=== PATIENT | male | born 1985 | race Caucasian/White ===

== ENCOUNTER 2019-08-10 20:41 | Emergency (ER) | payer OTHER, SELFPAY ==
[2019-08-10 20:46] VITALS: BP 161/80; PULSE 117; RESP 20; TEMP 38.8; O2SAT 98
--- NOTE | 2019-08-10 20:52 | ED.FEVER ---
HPI - Fever General Chief Complaint: Upper Respiratory Infection Stated Complaint: fever, muscle aches, chills Time Seen by Provider: 08/10/19 20:52 Source: patient and RN notes reviewed Mode of arrival: ambulatory Limitations: no limitations History of Present Illness MD elicited complaint: fever and malaise Onset (ago): hour(s) (3.5) Measured temperature: 101.0 C Relieving factors: nothing Associated symptoms: chills, myalgias and nausea Treatments prior to arrival fever: none Related Data Home Medications Medication Instructions Recorded Confirmed No Home Medications 08/10/19 08/10/19 Allergies Allergy/AdvReac Type Severity Reaction Status Date / Time No Known Allergies Allergy Unverified 10/10/18 12:58 Review of Systems Review of Systems: All systems reviewed & are unremarkable except as noted in HPI and below PMFSH Past Medical History Medical History (Updated 08/10/19 @ 21:37 by Fede Aburto MD) No active medical problems Social History Social History (Updated 08/10/19 @ 21:03 by Fede Aburto MD) Smoking status: Current every day smoker Tobacco type: e-cigarettes Alcohol intake: current Alcohol use details: occasional Substance use: never Gender identity (if verbalized by the patient): Male Exam Const: General: healthy appearing, no acute distress and alert Nutritional Appearance: well nourished Orientation/consciousness: patient oriented x3 HENMT: Head: normal to inspection Ears: external ears normal and TM's normal bilaterally General nose exam: Normal external nose present and Normal nares present Face and sinus: normal facial exam Mouth: Yes Normal oral and palatal mucosa present, Yes lip normal and Yes moist mucous membranes Throat: posterior oropharynx normal and uvula midline Eyes: Conjunctivae: conjunctivae normal Pupils: Equal, round and reactive pupils present EOM: EOMs intact bilaterally Neck: Neck: normal visual inspection and no lymphadenopathy Resp: Effort & Inspection: normal respiratory effort Auscultation: clear to auscultation bilaterally Cardio: Rate: regular rate Rhythm: regular rhythm Heart sounds: no murmurs GI: Auscultation: normal bowel sounds Back/Spine/Pelvis: Cervical Spine: cervical ROM normal Thoracic/Lumbar Spine: thoraco-lumbar ROM normal Skin: General skin exam: normal color Rashes: no rashes Neuro: General: patient oriented x3, moves all extremities and no focal motor deficits Speech: normal speech Gait exam (Neuro): Normal gait present Extrem: General: normal to inspection and no clubbing, cyanosis or edema Psych: Appearance: well kempt Mental Status: mental status grossly normal Affect: normal affect Attitude: cooperative Thought content: Yes Normal thought content present Course Vital Signs Vital signs: Vital Signs Temperature 38.8 C H 08/10/19 20:46 Pulse Rate 117 H 08/10/19 20:46 Respiratory Rate 20 08/10/19 20:46 Blood Pressure 161/80 H 08/10/19 20:46 Pulse Oximetry 98 08/10/19 20:46 Temperature 38.8 C H 08/10/19 20:46 Pulse Rate 117 H 08/10/19 20:46 Respiratory Rate 20 08/10/19 20:46 Blood Pressure 161/80 H 08/10/19 20:46 Pulse Oximetry 98 08/10/19 20:46 MDM - Fever MDM Narrative Medical decision making narrative: patient has fever of abrupt onset with myalgias mild nausea and chills. He tested negative for influenza I am going to test him for COVID-19. Patient is currently stable with good oxygen saturation and no dyspnea or severe cough. He is stable to be at home until he receives results. Differential Diagnosis Differential diagnosis: Likely fever of unknown origin, viral infection and influenza Lab Data Labs: Lab Results 08/10/19 08/10/19 Range/Units 21:04 21:43 Influenza Type A Ag Negative (Negative) Influenza Type B Ag Negative (Negative) SARS-CoV-2 RNA (RT-PCR) Pending Discharge Plan Discharge Clinical Impression: Viral
[2019-08-10] MEDS: ACETAMINOPHEN 325 MG TABLET 650 MG PO (21:08)
[2019-08-10 21:27] LABS: Influenza Control Valid (Valid)
--- NOTE | 2019-08-10 21:35 | PC.NURSE ---
Self quarantine instructions provided to pt. Instructed that people in his household must also self quarantine until results of Covid swab are obtained. Pt verbalizes understanding.
[2019-08-10 21:38] VITALS: RESP 20
[2019-08-13 14:01] LABS: SARS-CoV-2 RNA PCR Negative
== END 2019-08-10 21:38 | disposition home or self-care (01) ==
PROVIDERS: Emergency Provider Emergency Medicine; PCP Internal Medicine
DX: B34.9 Viral infection, unspecified (principal); Z20.828 Contact with and (suspected) exposure to other viral communicable diseases
CPT/HCPCS: 87635; 87804; 99283; A9270; C9803; U0003

== ENCOUNTER 2019-08-25 20:24 | Emergency (ER) | payer OTHER, SELFPAY ==
--- NOTE | ~2019-08-25 | XR_ITS ---
EXAMINATION: XR chest ET placement EXAM DATE: 08/25/2019 21:12 INDICATION: Intubated. TECHNIQUE: Portable AP frontal chest x-ray was obtained. There is no prior study for comparison. FINDINGS: Endotracheal tube tip is 2 centimeters above the corbin (ideal range is between 2 to 5 cm). There is no focal acute air space disease. There are no sizable pleural effusions. There is no p neumothorax suspected. Cardiomediastinal silhouette is normal. The bones and soft tissues are unre markable. There is no significant interval change compared to prior exam. IMPRESSION: 1. ET tube in position. 2. No acute cardiopulmonary findings. Reviewed, dictated and finalized at location G.
[2019-08-25 20:24] VITALS: BP 154/126; PULSE 132; RESP 20; TEMP 36.5; O2SAT 97
[2019-08-25 20:25] VITALS: PULSE 132
[2019-08-25 20:30] VITALS: O2SAT 100
--- NOTE | 2019-08-25 20:30 | PC.NURSE ---
2 liters of normal saline administered. 1 liter in left forearm and liter 2 in right forearm.
--- NOTE | 2019-08-25 20:30 | PC.NURSE ---
normal saline 1 liter started throught right forearm wide open.
--- NOTE | 2019-08-25 20:40 | PC.NURSE ---
Arch at bedside. Arch using RSI medications of their own to intubation pt. 2044 50mcg fentanyl 2047 30 mg etomidate 2048 200mg succinocholine 2049 Pt intubated size 8 tube, 26 @ the lips via arch staff. 2054 50mcg fentanyl 8 1mg Ativan 2102 1mg Ativan 2102 chest xray done for tube placement 2106 50mcg Fentanyl 2114 50mcg fentanyl
--- NOTE | 2019-08-25 20:40 | PC.NURSE ---
blood sugar 145
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
[2019-08-25 20:48] VITALS: BP 139/98; PULSE 104; RESP 14; O2SAT 100
--- NOTE | 2019-08-25 21:04 | PC.NURSE ---
Addendum entered by Shari Perry RN 08/25/19 22:14: normal saline 1 liter infused. Original Note: normal saline 2 liters infused.
[2019-08-25 21:06] VITALS: BP 140/88; PULSE 118; O2SAT 96
--- NOTE | 2019-08-25 21:17 | PC.NURSE ---
TANESHA BARNETT, [place] at [facility] updated on pts status and departure via arch.
[2019-08-25 21:20] VITALS: BP 162/47; PULSE 117; O2SAT 100
[2019-08-26 00:40] LABS: Glucose Point of Care 145 (65-105)
== END 2019-08-25 21:20 | disposition short-term general hospital (02) ==
PROVIDERS: Emergency Provider Family Medicine; PCP Internal Medicine
DX: S09.90XA Unspecified injury of head, initial encounter (principal); S41.012A Laceration without foreign body of left shoulder, initial encounter; S70.211A Abrasion, right hip, initial encounter; J93.9 Pneumothorax, unspecified; V29.9XXA Motorcycle rider (driver) (passenger) injured in unspecified traffic accident, initial encounter; F17.200 Nicotine dependence, unspecified, uncomplicated
CPT/HCPCS: 31500; 96361; 96374; 96375; 96376; 99285; 99291; J7030

== ENCOUNTER 2019-10-17 14:00 | Outpatient (RCR) | payer OTHER, SELFPAY ==
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
--- NOTE | 2019-11-06 16:04 | PCPTNOTE ---
11/06/19-pt cancelled today's appointment. -.
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
== END 2019-12-07 14:40 | disposition home or self-care (01) ==
LOC: CHSST 14:00
PROVIDERS: PCP Internal Medicine; Visit Provider Internal Medicine
DX: S09.90XA Unspecified injury of head, initial encounter (principal); R48.0 Dyslexia and alexia; R27.8 Other lack of coordination; M75.01 Adhesive capsulitis of right shoulder
CPT/HCPCS: 92507; 96125; 97014; 97110; 97112; 97129; 97130; 97140; 97161; 97166; 97530; G0283

== ENCOUNTER 2019-11-03 09:50 | Outpatient (CLI) | payer OTHER, SELFPAY ==
--- NOTE | ~2019-11-03 | MR_ITS ---
EXAMINATION: MR shoulder RT wo con DATE: 11/03/2019 11:08 INDICATION: Right shoulder pain. TECHNIQUE: Magnetic resonance imaging (MRI) of the right shoulder was performed without intravenous c ontrast. Sequences included axial PD-weighted FS FSE, coronal oblique PD-weighted FS FSE and T2-weigh sukhi FS FSE, and sagittal oblique T2-weighted FS FSE and T1-weighted FSE. COMPARISON: None. FINDINGS: Coracoacromial arch: The acromion undersurface is curved in morphology (type II). The acromioclavicular joint is normal. T here is mild subacromial/subdeltoid bursitis. Rotator cuff: There is mild supraspinatus tendinopathy. Infraspinatus tendon and teres minor tendon are normal. The re is moderate subscapularis tendinopathy. No tear. There is no asymmetric fatty atrophy of the rotat or cuff muscle bellies. Biceps tendon and glenoid labrum: Biceps tendon is in bicipital groove. Intra-articular biceps tendon is normal. The glenoid labrum is normal. Fluid: There is no glenohumeral joint effusion. Bones/cartilage: There is cartilage surface irregularity of glenoid and humeral head. IMPRESSION: 1. Moderate rotator cuff tendinopathy. No tear. 2. Mild glenohumeral joint chondrosis. 3. Mild subacromial/subdeltoid bursitis. Reviewed, dictated and finalized at location A.
== END 2019-11-03 09:51 | disposition home or self-care (01) ==
PROVIDERS: PCP Internal Medicine; Visit Provider Internal Medicine
DX: M25.511 Pain in right shoulder (principal)
CPT/HCPCS: 73221

== ENCOUNTER 2020-03-11 23:51 | Emergency (ER) | payer SELFPAY ==
--- NOTE | ~2020-03-11 | XR_ITS ---
EXAMINATION: XR chest 1V portable 03/12/2020 01:19 INDICATION: Pain. Positive Covid tests. PROCEDURE: AP portable chest COMPARISON: 08/25/2019 FINDINGS: The lungs are clear. The cardiomediastinal silhouette is within normal limits. There are no pleural effusions. There is no pneumothorax suspected. IMPRESSION: 1: NO ACUTE CARDIOPULMONARY DISEASE. Reviewed, dictated and finalized at location A. T SPECIALIST
[2020-03-12 00:10] VITALS: BP 132/86; PULSE 79; RESP 20; TEMP 36.4; O2SAT 100
--- NOTE | 2020-03-12 00:20 | ECG_ITS ---
Measurements Intervals [place] Rate: 70 P: 77 CA: 140 QRS: 79 QRSD: 88 T: 37 QT: 356 QTc: 386 Interpretive Statements SINUS RHYTHM WITH SINUS ARRHYTHMIA BASELINE WANDER- AVF, V2-V6 NORMAL ECG Electronically Signed On 03-12-2020 7:28:39 [employer] SAL[employer]AGER by Cristino Barbosa D.O.
[2020-03-12 00:39] LABS: Basophils Absolute Auto 0.02 K/mm3 (0.00-0.10); Basophils Percent Auto 0.5 % (0.0-1.0); Eosinophils Absolute Auto 0.12 K/mm3 (0.02-0.50); Eosinophils Percent Auto 2.8 % (1.0-6.0); Hematocrit 44.2 % (40.0-54.0); Hemoglobin 14.6 g/dL (14.0-18.0); Immature Granulocyte Absolute 0.02 K/mm3 (0.00-0.00); Immature Granulocyte Percent A 0.5 % (0.0-0.0); Lymphocytes Absolute Auto 1.65 K/mm3 (1.10-4.50); Mean Corpuscular Hemoglobin 29.5 pg (27.0-31.0); Mean Corpuscular Volume 89.3 fL (78.0-102.0); Mean Platelet Volume 11.4 fl (8.7-11.0); Monocytes Absolute Auto 0.43 K/mm3 (0.10-0.90); Monocytes Percent Auto 9.9 % (2.0-11.0); Neutrophils Absolute Auto 2.1 K/mm3 (1.7-7.2); Neutrophils Percent Auto 48.3 % (50.0-70.0); Platelet Count Result 189 K/mm3 (150-420); Red Blood Count 4.95 M/mm3 (4.70-6.10); Red Cell Distribution Width 13.1 % (11.6-14.4); White Blood Count 4.3 K/mm3 (4.8-10.8)
[2020-03-12] MEDS: KETOROLAC (*BKC) 60 MG/2 ML VIAL IM (00:39)
[2020-03-12 00:55] LABS: D Dimer 0.46 mg/L (0.19-0.50)
[2020-03-12 01:00] LABS: SARS-CoV-2 Ag Positive (Negative)
[2020-03-12 01:08] LABS: Alanine Aminotransferase 17 U/L (16-63); Alkaline Phosphatase 46 U/L (46-116); Anion Gap 7 mmol/L (8-16); Aspartate Amino Transferase 12 U/L (15-37); Bilirubin,Total 0.3 mg/dL (0.00-1.00); Blood Urea Nitrogen 16 mg/dL (7-18); Calcium 9.1 mg/dL (8.5-10.1); Carbon Dioxide 30 mmol/L (21-32); Chloride 104 mmol/L (98-108); Estimated Glomerular Filt Rate > 60; Glucose 99 mg/dL (70-99); Osmolality Calculated 293 mOsm/kg (285-295); Potassium 4.1 mmol/L (3.5-5.1); Sodium 141 mmol/L (136-145); Total Protein 7.3 g/dL (6.4-8.2)
[2020-03-12 01:11] LABS: Troponin I < 0.02 ng/mL (0.00-0.056)
--- NOTE | 2020-03-12 01:46 | ED.GENADULT ---
HPI - General Adult General Chief complaint: Abdominal Pain Stated complaint: SIDE PAIN Time Seen by Provider: 03/12/20 00:25 Source: patient Mode of arrival: ambulatory Limitations: no limitations History of Present Illness HPI narrative: Patient comes in with pain in the right lateral chest pain. This has gone on for the past couple of days. Pain has been moderately severe and ongoing. Nothing at home has helped this to get better Quality: stabbing Pain Consistency: intermittent Exacerbating factors: none Related Data Allergies Allergy/AdvReac Type Severity Reaction Status Date / Time No Known Allergies Allergy Unverified 10/10/18 12:58 Review of Systems Constitutional: Constitutional: Reports no additional constitutional complaints Eyes: Eyes: Reports no additional eye complaints ENT: Reports system reviewed and no additional complaints, except as documented Cardiovascular: Cardiovascular: Reports no additional cardiovascular complaints Respiratory: Respiratory: Reports no additional respiratory complaints Gastrointestinal: Gastrointestinal: Reports no additional gastrointestinal complaints Genitourinary: Genitourinary: Reports no additional male genitourinary complaints Musculoskeletal: Musculoskeletal: Reports no additional musculoskeletal complaints Integumentary/Breasts: Skin/Breast: Reports system reviewed and no additional complaints, except as docu Neurologic: Reports system reviewed and no additional complaints, except as documented Psychiatric: Psychiatric: Reports no additional psychiatric complaints Endocrine: Endocrine: Reports no additional endocrine complaints Hematologic/Lymphatic: Hematologic/Lymphatic: Reports no additional hematologic/lymphatic complaints [facility] Past Medical History Medical History (Updated 03/12/20 @ 04:33 by Fede Clarke MD) No active medical problems Surgical History Surgical History H/O hernia repair Social History Social History (Updated 08/10/19 @ 21:03 by Fede Aburto MD) Smoking status: Current every day smoker Tobacco type: e-cigarettes/vaping Alcohol intake: current Substance use: never Gender identity (if verbalized by the patient): Male Exam Const: General: no acute distress HENMT: Head: normal to inspection General nose exam: Normal nares present Face and sinus: normal facial exam Eyes: Conjunctivae: conjunctivae normal Neck: Neck: normal visual inspection and no lymphadenopathy Chest: Chest palpation & inspection: normal inspection of the chest Resp: Effort & Inspection: normal respiratory effort Auscultation: clear to auscultation bilaterally Cardio: Rate: regular rate Rhythm: regular rhythm GI: GI Palp: Yes Soft to palpation Auscultation: normal bowel sounds : Male General Exam: Yes normal external exam Back/Spine/Pelvis: Back: no CVA tenderness Skin: General skin exam: normal color Neuro: General: patient oriented x3 and moves all extremities Extrem: General: normal to inspection Psych: Mental Status: mental status grossly normal Thought content: Yes Normal thought content present Course Course Emergency Course: Covid was positive, CXR was within normal limits. D dimer was negative. He improved and felt better after he was given ketorolac 60mg IM. Vital Signs Vital signs: Vital Signs Temperature 36.4 C 03/12/20 00:10 Pulse Rate 79 03/12/20 00:10 Respiratory Rate 20 03/12/20 00:10 Blood Pressure 132/86 03/12/20 00:10 Pulse Oximetry 100 03/12/20 00:10 Temperature 36.4 C 03/12/20 00:10 Pulse Rate 84 03/12/20 02:02 Respiratory Rate 20 03/12/20 02:02 Blood Pressure 132/89 03/12/20 02:02 Pulse Oximetry 97 03/12/20 02:02 Medical Decision Making Vital Signs Vital Signs: Vital Signs Temperature 36.4 C 03/12/20 00:10 Pulse Rate 79 03/12/20 00:10 Respiratory Rate 20 03/12/20 00:10 Bl
[2020-03-12 02:02] VITALS: BP 132/89; PULSE 84; RESP 20; O2SAT 97
== END 2020-03-12 02:15 | disposition home or self-care (01) ==
PROVIDERS: Emergency Provider Emergency Medicine; PCP Internal Medicine
DX: U07.1 COVID-19 (principal); R07.89 Other chest pain
CPT/HCPCS: 36415; 71045; 80053; 84484; 85025; 85380; 87426; 93005; 96372; 99283; 99284; J1885

== ENCOUNTER 2020-05-09 06:34 | Outpatient (CLI) | payer OTHER, SELFPAY ==
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
== END 2020-05-09 06:35 | disposition home or self-care (01) ==
PROVIDERS: PCP Internal Medicine; Visit Provider Internal Medicine
DX: R41.0 Disorientation, unspecified (principal)
CPT/HCPCS: 95816

== ENCOUNTER 2020-05-09 13:53 | Outpatient (CLI) | payer OTHER, SELFPAY ==
--- NOTE | 2020-05-09 13:59 | ECHO_ITS ---
Patient Info Name: Chang Garcia Age: 34 years : 1985 Gender: Male Ht: 69 in Wt: 145 lbs BSA: 1.79 m2 HR: 83 bpm BP: 128 / 73 mmHg Heart Rhythm: Sinus Rhythm Technical Quality: Good Exam Date: 05/09/2020 2:18 PM Exam Location: [facility] Patient Status: Outpatient Admit Date: 05/09/2020 Staff Ordering Physician: Manolo Nick MD French Lecturer: Shari Owens RDCS Attending Provider: Manolo Nick MD Referring Physician: Sandoval JOHNSTON; Exam Type: CA echo doppler color flow Study Info Indications I49.9 - Cardiac arrhythmia, unspecified Complete two-dimensional, color flow and Doppler transthoracic echocardiogram is performed. Strain analysis performed. History/Risk Factors Hypertension: No Dyslipidemia: No Congenital Heart Disease (CHD): No Peripheral Arterial Disease (PAD): No Myocardial Infarction ([place]): No Chronic Lung Disease: No Obesity: No Renal Disease: No Coronary Artery Disease (CAD) No Congestive Heart Failure (CHF): No Cardiomyopathy/LV Systolic Dysfunction: No Diabetes Mellitus: No COPD: No Tobacco Use: Former Cerebrovascular Disease: No Deep Vein Thrombosis (DVT): None Dialysis: None Frailty Scale (CSHA): 1: Very Fit Cardiac Arrest: No Summary 1. Complete two-dimensional, color flow and Doppler transthoracic echocardiogram is performed. 2. Left ventricular chamber dimension is normal. 3. Left ventricular systolic function is normal, estimated at 60-65%. 4. The left ventricular diastolic function is normal. 5. E/e' 4 is not elevated. 6. Global longitudinal strain is abnormal at -12.3%. 7. There is mild tricuspid valve regurgitation. 8. No pulmonary hypertension, estimated pulmonary arterial systolic pressure is 25 mmHg. Left Ventricle E/e' 4 is not elevated. Global longitudinal strain is abnormal at -12.3%. Left ventricular chamber dimension is normal. Left ventricular systolic function is normal, estimated at 60-65%. The left ventricular diastolic function is normal. Right Ventricle Right ventricular chamber dimension is normal. Right ventricular systolic function is normal. Left Atria Left atrial chamber dimension is normal. Right Atria Right atrial chamber dimension is normal. Aortic Valve The aortic valve is trileaflet. There is no aortic valve stenosis. There is no aortic valve regurgitation. Pulmonic Valve There is no pulmonic regurgitation. Mitral Valve There is no mitral valve stenosis. There is no mitral valve regurgitation. Tricuspid Valve There is mild tricuspid valve regurgitation. No pulmonary hypertension, estimated pulmonary arterial systolic pressure is 25 mmHg. Pericardium/Pleural There is no pericardial effusion. Inferior Vena Cava Normal inferior vena cava with >50% collapse upon inspiration consistent with normal right atrial pressure, 5 mmHg. Aorta The aortic root size at the sinus of Valsalva is normal. Left Ventricular Outflow Tract Name Value Normal LVOT 2D LVOT Diameter 2.0 cm LVOT Doppler LVOT
== END 2020-05-09 13:54 | disposition home or self-care (01) ==
LOC: CHSIMG 13:55
PROVIDERS: PCP Internal Medicine; Visit Provider Internal Medicine
DX: I48.91 Unspecified atrial fibrillation (principal)
CPT/HCPCS: 93306

== ENCOUNTER 2020-05-14 09:00 | Outpatient (CLI) | payer OTHER, SELFPAY ==
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
== END 2020-05-14 09:01 | disposition home or self-care (01) ==
LOC: CHSIMG 09:02
PROVIDERS: PCP Internal Medicine; Visit Provider Internal Medicine
DX: M54.6 Pain in thoracic spine (principal)
CPT/HCPCS: 72146

== ENCOUNTER 2020-05-16 12:34 | Outpatient (CLI) | payer OTHER, SELFPAY ==
--- NOTE | ~2020-05-16 | DEXA_ITS ---
Bone Density Report Name: Chang Garcia Age: 34 Sex: Male Ethnicity: White Date of : 1985 Indication: low bone mass Referring Provider: Manolo Nick Study: Bone densitometry was performed. Exam Date: May 16, 2020 Accession number: [id number] Bone Density: Region BMD T-score Z-score Classification AP Spine(L1-L4) 0.984 -0.9 Femoral Neck (Left) 0.685 -1.4 Total Hip (Left) 0.848 -1.1 Femoral Neck (Right) 0.684 -1.4 Total Hip (Right) 0.849 -1.1 Femoral Neck Mean 0.684 -1.4 Total Hip Mean 0.848 -1.1 World Health Organization criteria for BMD impression classify patients as: Normal (T-score at or above -1.0), Osteopenia (T-score between -1.0 and -2.5), or Osteoporosis (T-score at or below -2.5). 10-year Fracture Risk: FRAX not reported because: Man under age 50 Clinical Information Provided by Patient: Drinks caffeinated beverages Impression: The patient's bone mass is within expected range for age, gender and ethnicity. Discussion: BONE DENSITY IS WITHIN EXPECTED LIMITS FOR AGE, SEX AND RACE. Bone density is within expected limits for age, sex and race at all sites measured. The patient should follow a healthful lifestyle (good nutrition with adequate calcium and vitamin D, and appropriate weight-bearing exercise). Follow-Up: Consider repeating this study in 5 years or sooner if there is some new clinical indication. Reported by: Dr. Michele Carrillo on 05/16/2020 1:01:00 PM. Reviewed, dictated and finalized at location [facility]
[2020-05-21 13:01] LABS: Vitamin D 25 Hydroxy 18 ng/mL (30-100)
== END 2020-05-16 12:35 | disposition home or self-care (01) ==
LOC: CHSLAB 12:35
PROVIDERS: PCP Internal Medicine; Visit Provider Internal Medicine
DX: M89.8X9 Other specified disorders of bone, unspecified site (principal)
CPT/HCPCS: 36415; 77080; 82306

== ENCOUNTER 2020-06-03 14:13 | Emergency (ER) | payer OTHER, MEDICAID, SELFPAY ==
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
--- NOTE | 2020-06-03 14:31 | ECG_ITS ---
Measurements Intervals [place] Rate: 66 P: 73 MD: 147 QRS: 76 QRSD: 85 T: 22 QT: 357 QTc: 376 Interpretive Statements SINUS RHYTHM WITH SINUS ARRHYTHMIA INCOMPLETE RIGHT BUNDLE BRANCH BLOCK ST ELEVATION IN ANTERIOR LEADS, PROBABLY EARLY REPOLARIZATION BORDERLINE ECG Electronically Signed On 06-03-2020 15:10:36 [employer] by Cristino Barbosa D.O.
[2020-06-03 14:43] VITALS: BP 135/80; PULSE 80; RESP 20; TEMP 36.3; O2SAT 99
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
[2020-06-03 16:42] LABS: Basophils Absolute Auto 0.05 K/mm3 (0.00-0.10); Basophils Percent Auto 0.6 % (0.0-1.0); Eosinophils Absolute Auto 0.34 K/mm3 (0.02-0.50); Eosinophils Percent Auto 4.1 % (1.0-6.0); Hematocrit 40.9 % (40.0-54.0); Hemoglobin 13.9 g/dL (14.0-18.0); Immature Granulocyte Absolute 0.04 K/mm3 (0.00-0.00); Immature Granulocyte Percent A 0.5 % (0.0-0.0); Lymphocytes Absolute Auto 2.57 K/mm3 (1.10-4.50); Lymphocytes Percent Auto 31.1 % (18.0-42.0); Mean Corpuscular Hemoglobin 29.8 pg (27.0-31.0); Mean Corpuscular Volume 87.8 fL (78.0-102.0); Mean Platelet Volume 10.9 fl (8.7-11.0); Monocytes Absolute Auto 0.52 K/mm3 (0.10-0.90); Monocytes Percent Auto 6.3 % (2.0-11.0); Neutrophils Absolute Auto 4.8 K/mm3 (1.7-7.2); Neutrophils Percent Auto 57.4 % (50.0-70.0); Platelet Count Result 205 K/mm3 (150-420); Red Blood Count 4.66 M/mm3 (4.70-6.10); White Blood Count 8.3 K/mm3 (4.8-10.8)
[2020-06-03 16:55] LABS: Alanine Aminotransferase 27 U/L (16-63); Albumin Level 4.2 g/dL (3.4-5.0); Alkaline Phosphatase 62 U/L (46-116); Anion Gap 7 mmol/L (8-16); Aspartate Amino Transferase 14 U/L (15-37); Bilirubin,Total 0.5 mg/dL (0.00-1.00); Blood Urea Nitrogen 11 mg/dL (7-18); Calcium 8.9 mg/dL (8.5-10.1); Carbon Dioxide 32 mmol/L (21-32); Chloride 102 mmol/L (98-108); Creatine Kinase 136 U/L (39-308); Estimated CRCL calculation 72 ml/min; Estimated Glomerular Filt Rate > 60; Glucose 89 mg/dL (70-99); Osmolality Calculated 290 mOsm/kg (285-295); Potassium 3.9 mmol/L (3.5-5.1); Sodium 141 mmol/L (136-145); Total Protein 7.1 g/dL (6.4-8.2)
[2020-06-03 17:26] VITALS: BP 137/75; PULSE 66; RESP 20; TEMP 36.7; O2SAT 99
== END 2020-06-03 17:30 | disposition home or self-care (01) ==
PROVIDERS: Emergency Provider Emergency Medicine; PCP Internal Medicine
DX: R41.0 Disorientation, unspecified (principal)
CPT/HCPCS: 36415; 70450; 80053; 82550; 85025; 93005; 99283; 99284

== ENCOUNTER 2020-06-25 15:10 | Outpatient (RCR) | payer MEDICAID, SELFPAY ==
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
== END 2020-07-28 10:37 | disposition home or self-care (01) ==
LOC: CHSPT 15:10
PROVIDERS: PCP Internal Medicine; Visit Provider Internal Medicine
DX: M48.54XD Collapsed vertebra, not elsewhere classified, thoracic region, subsequent encounter for fracture with routine healing (principal)
CPT/HCPCS: 97014; 97110; 97161; G0283

== ENCOUNTER 2023-12-24 07:43 | Emergency (ER) | payer BC, SELFPAY ==
[2023-12-24] VITALS (11 sets, daily range): BP systolic 127–146; BP diastolic 71–89; PULSE 82–101; RESP 18–24; TEMP 36.6–36.7; O2SAT 98–100
--- NOTE | ~2023-12-24 | XR_ITS ---
EXAMINATION: XR chest 1V portable DATE: 12/24/2023 08:13 INDICATION: Chest wall pain. TECHNIQUE: A single frontal view of the chest was obtained. COMPARISON: Chest single view 03/12/2020 FINDINGS: There is no pneumonia, pleural effusion, or pneumothorax. The heart size is normal. There i s a fracture of left eighth rib. IMPRESSION: 1. Fracture of left eighth rib. Reviewed, dictated and finalized at location A.
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
[2023-12-24] MEDS: HYDROmorphone HCL INJ (*CRX) 2 MG/ML VIAL 1 MG IM (08:09)
[2023-12-24] MEDS: ONDANSETRON HCL ODT 4 MG TABLET PO (08:10)
== END 2023-12-24 09:02 | disposition home or self-care (01) ==
LOC: CHSED 08:32
PROVIDERS: Emergency Provider Internal Medicine Critical Care Medicine; PCP Internal Medicine
DX: S22.32XD Fracture of one rib, left side, subsequent encounter for fracture with routine healing (principal); F17.290 Nicotine dependence, other tobacco product, uncomplicated; W19.XXXD Unspecified fall, subsequent encounter
CPT/HCPCS: 71045; 96372; 99283; A9270; J1170

== ENCOUNTER 2023-12-28 12:57 | Outpatient (CLI) | payer BC, SELFPAY ==
[2023-12-28 13:22] LABS: Basophils Absolute Auto 0.04 K/mm3 (0.00-0.10); Basophils Percent Auto 0.6 % (0.0-1.0); Eosinophils Absolute Auto 0.23 K/mm3 (0.02-0.50); Eosinophils Percent Auto 3.5 % (1.0-6.0); Hemoglobin 14.8 g/dL (14.0-18.0); Immature Granulocyte Absolute 0.02 K/mm3 (0.00-0.00); Immature Granulocyte Percent A 0.3 % (0.0-0.0); Lymphocytes Absolute Auto 2.23 K/mm3 (1.10-4.50); Lymphocytes Percent Auto 34.4 % (18.0-42.0); Mean Corpuscular HGB Conc 32.9 g/dL (32-36); Mean Corpuscular Hemoglobin 29.1 pg (27.0-31.0); Mean Corpuscular Volume 88.4 fL (78.0-102.0); Mean Platelet Volume 10.5 fl (8.7-11.0); Monocytes Absolute Auto 0.35 K/mm3 (0.10-0.90); Monocytes Percent Auto 5.4 % (2.0-11.0); Neutrophils Absolute Auto 3.62 K/mm3 (1.70-7.20); Neutrophils Percent Auto 55.8 % (50.0-70.0); Platelet Count Result 239 K/mm3 (150-420); Red Blood Count 5.09 M/mm3 (4.70-6.10); Red Cell Distribution Width 12.1 % (11.6-14.4); White Blood Count 6.5 K/mm3 (4.8-10.8)
[2023-12-28 13:50] LABS: Hemoglobin A1C 5.5 % (<5.7)
[2023-12-28 13:54] LABS: Alanine Aminotransferase 55 U/L (16-63); Albumin Level 4.1 g/dL (3.4-5.0); Alkaline Phosphatase 51 U/L (46-116); Anion Gap 5 mmol/L (4-12); Aspartate Amino Transferase 31 U/L (15-37); Bilirubin,Total 0.4 mg/dL (0.00-1.00); Blood Urea Nitrogen 11 mg/dL (7-18); Calcium 9.6 mg/dL (8.5-10.1); Carbon Dioxide 35 mmol/L (21-32); Chloride 103 mmol/L (98-108); Cholesterol 229 mg/dL (0-200); Estimated Glomerular Filt Rate > 60; Glucose 97 mg/dL (70-99); HDL Direct 44 mg/dL (40-60); LDL Cholesterol Calculated 121 mg/dL (<130); Osmolality Calculated 295 mOsm/kg (285-295); Potassium 4.2 mmol/L (3.5-5.1); Sodium 143 mmol/L (136-145); Thyroid Stimulating Hormone Reflex 1.83 u/IU/mL (0.36-3.74); Total Protein 7.4 g/dL (6.4-8.2); Triglycerides 322 mg/dL (0-150)
[2023-12-30 05:23] LABS: Vitamin D 25 Hydroxy 23 ng/mL (30-100)
== END 2023-12-28 12:58 | disposition home or self-care (01) ==
LOC: CHSLAB 13:00
PROVIDERS: PCP Nurse Practitioner Family; Visit Provider Nurse Practitioner Family
DX: Z00.00 Encounter for general adult medical examination without abnormal findings (principal); E55.9 Vitamin D deficiency, unspecified
CPT/HCPCS: 36415; 80053; 80061; 82306; 83036; 84443; 85025

== ENCOUNTER 2024-11-11 11:34 | Emergency (ER) | payer BC, SELFPAY ==
--- NOTE | ~2024-11-11 | XR_ITS ---
HISTORY: possible FB/ contusion at proximal MC 1-2 region of Rt. hand COMPARISON: None TECHNIQUE: 3 views of the right hand were performed. FINDINGS: 7 mm curvilinear radiopaque foreign body is identified at the web space of the first and second digit s, adjacent to the proximal portion of the first and second metacarpal. No acute fracture is identified. Gullwing deformity is identified within the proximal interphalangeal joint spaces of the second, thir d, fourth and fifth digits. Moderate degenerative disease within the first carpometacarpal joint space, suggesting mild osteoarth ritis. The remaining joint spaces are otherwise preserved. The carpal arcs are intact. Mild radiocarpal joint space narrowing with sclerosis of the distal radius is present. Bone mineralization is age-appropriate. IMPRESSION: No acute fracture or dislocation within the right hand, as detailed above. Radiopaque foreign body within the web space of the first and second digits, as detailed above. Further localization may be performed with ultrasound, if clinically necessary. Reviewed, dictated and finalized at location A.
[2024-11-11 11:34] VITALS: BP 136/94; PULSE 64; RESP 14; TEMP 36.4; O2SAT 100
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
--- OUTSIDE RECORDS SUMMARY | 2024-11-11 11:40 | XMS_ITS | Referral Summary ---
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 Monthly or less 05/15/2024 Q2: How many drinks containi ng alcohol do you have on a typical day when you are drinking? 1 or 2 05/15/2024 Q3: How often do you have si x or more drinks on one occasion? Never 05/15/2024 Hunger Vital Sign Answer Date Recorded Within the past 12 months, y ou worried that your food would run out before you got the money to buy more. Never true 05/31/19 23 Within the past 12 months, t he food you bought just didn't last and you didn't have money to get more. Never true 05/31/2022 Personal Safety Answer Date Recorded Have you ever been in or are you currently in a harmful physical or emotional relationship or is someone making you feel afraid or unsafe? 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7 cm (5' 8) 12/21/2023 11:37 AM CDT Body Mass Index 24.84 12/21/2023 11:37 AM CDT Plan of Treatment Not on file Insurance IDPA [employer] OOS IDPA AETNA [facility] [place] IDPA BLUE ACCESS OOS WORKERS COMPENSATION GENERIC COMPENSATION Care Teams Day Habilitation Supervisor Relationship Specialty Start Date End Date Manolo Nick MD [address] [place] [address] PCP - General Internal Medicine 06/09/20 Shae Pop MD [address] [place] [address] Resident Neurology 05/25/23
--- OUTSIDE RECORDS SUMMARY | 2024-11-11 11:40 | XMS_ITS | Clinical Summary ---
Author Organization [facility] Address [address] [place] [address] Care Team Providers Care Store Custodian Name Role Phone Unavailable Primary Care Provider Unavailabl e Source Comments [facility],non-owned Affiliates and Associated Physician Practices is amultiple site organization consisting of ambulatory clinics and hospital sitesin [place], [place], [place] and [place]. This disclosure is being madepursuant to the Care Everywhere program and may not contain all information available regarding this patient. Last updated 18.[facility] [employer] Social History Tobacco Use Types Packs/Day Years Used Date Smoking Tobacco: Never Assessed Sex and Gender Information Value Date Recorded Sex Assigned at Not on file Legal Sex Male 12:31 PM CDT Gender Identity Not on file Sexual Orientation Not on file Plan of Treatment Health Maintenance Due Date Last Done Comments HIV SCREENING 11/06/1998 HEPATITIS C SCREENING 11/02/2001 DTAP/TDAP/TD VACCINES (1 - Tdap) 11/06/2002 HEPATITIS B VACCINE (1 of 3 - 19+ 3-dose series) 11/06/2002 HPV VACCINE (1 - 3-dose SCDM series) 11/06/2010 COVID-19 VACCINE (1 - 2023-25 season) 2023 DEPRESSION SCREENING 04/18/2024 LIPID TESTING 09/22/2024 09/23/2019, 05/2019, 09/12/2019, Additional history exists INFLUENZA VACCINE (#1) 2024 ZOSTER VACCINE (1 of 2) 11/06/2033 HIB VACCINE Aged Out No longer eligi ble based on patient's age to complete this topic MENINGOCOCCAL (Group B) VACCINE SHARED DECISION-MAKING Aged Out No longer eligible based on patient's age to complete this topic MENINGOCOCCAL GROUPS A/C/Y/W VACCINE Aged Out No longer eligible based on patient's age to complete this topic PNEUMOCOCCAL VACCINE Aged Out No long er eligible based on patient's age [place] [id number] Advance Directives * Full Code (Latest Code Status on File) Date Activated Date Inactivated Comments 09/27/2019 6:14 PM 10/06/2019 11:01 AM
--- OUTSIDE RECORDS SUMMARY | 2024-11-11 11:40 | XMS_ITS | Clinical Summary ---
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 Atrial fibrillation COVID-19 Surgical History Surgery Date Site/Laterality Comments YOEL HOLE AND INSERTION INTRACRANIAL PRESSURE MONITOR TRACHEOSTOMY PEG TUBE PLACEMENT TRACHEOSTOMY CLOSURE PEG TUBE REMOVAL Medical History Medical History Date Comments Atrial fibrillation (HCC) PVC's (premature ventricular contractions) TBI (traumatic brain injury) (HCC) Family History Medical History Relation Name Comments Heart disease Maternal Grandfather Cancer Maternal Grandmother Diabetes Paternal Grandfather Relation Name Status Comments Maternal Grandfather Maternal Grandmother Paternal Grandfather Social History Tobacco Use Types Packs/Day Years [...] on file Legal Sex Male 9:47 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 Gender Identity Not on file Sexual Orientation Not on file Obstetrics History Last Filed Vital Signs Vital Sign Reading Time Taken Comments Blood Pressure 141/84 05/15/2024 3:53 PM MEDICAL SOCIAL CONSULTANT Pulse 74 05/15/2024 3:53 PM MEDICAL SOCIAL CONSULTANT Temperature 36.6 C (97.8 F) 05/15/2024 3:53 PM MEDICAL SOCIAL CONSULTANT Respiratory Rate 16 05/15/2024 3:53 PM MEDICAL SOCIAL CONSULTANT Oxygen Saturation 100% 05/15/2024 3:53 PM MEDICAL SOCIAL CONSULTANT Inhaled Oxygen Concentration - - Weight 74.1 kg (163 lb 6.4 oz) 05/15/2024 3:53 P M MEDICAL SOCIAL CONSULTANT Height 172.7 cm (5' 8) 12/21/2023 11:37 AM CDT Body Mass Index 24.84 12/21/2023 11:37 AM CDT Plan of Treatment Health Maintenance Due Date Last Done Comments Depression Screening 1983 Hepatitis C Screening 1983 DTaP/Tdap/Td Vaccine (6 - Tdap) 11/06/1994 12/19/1992, 06/02/1985, 07/15/1984, Additional history exists Varicella Vaccines (1 of 2 - 13+ 2-dose series) 11/06/1996 Hepatitis B Screening 11/06/2001 Regular Well Visit/Exam 18-64 11/06/2001 Pneumococcal vaccine <65 (1 of 2 - PCV) 11/06/2002 HPV Vaccines (1 - 3-dose SCD M series) 11/06/2010 Influenza Vaccine (#1) 2024 Insurance IDPA [facility] [place] IDPA AET[employer] [facility] [place] IDPA [employer] ACCESS OOS WORKERS COMPENSATION GENERIC COMPENSATION Care Teams Scanning Supervisor Relationship Specialty Start Date End Date Manolo Nick MD [address] [place] [address] PCP - General Internal Medicine 06/09/20 Shae Pop MD [address] [place] [address] Resident Neurology 05/25/23
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
--- OUTSIDE RECORDS SUMMARY | 2024-11-11 12:06 | XMS_ITS | Clinical Summary ---
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
--- OUTSIDE RECORDS SUMMARY | 2024-11-11 12:06 | XMS_ITS | Referral Summary ---
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 Gender Identity Not on file Sexual Orientation Not on file Last Filed Vital Signs Vital Sign Reading Time Taken Comments Blood Pressure 141/84 05/15/2024 3:53 PM SORTER LUMBER STRAIGHTENER Pulse 74 05/15/2024 3:53 PM SORTER LUMBER STRAIGHTENER Temperature 36.6 C (97.8 F) 05/15/2024 3:53 PM SORTER LUMBER STRAIGHTENER Respiratory Rate 16 05/15/2024 3:53 PM SORTER LUMBER STRAIGHTENER Oxygen Saturation 100% 05/15/2024 3:53 PM SORTER LUMBER STRAIGHTENER Inhaled Oxygen Concentration - - Weight 74.1 kg (163 lb 6.4 oz) 05/15/2024 3:53 P M SORTER LUMBER STRAIGHTENER Height 172.7 cm (5' 8) 12/21/2023 11:37 AM CDT Body Mass Index 24.84 12/21/2023 11:37 AM CDT Plan of Treatment Not on file Insurance IDPA [employer] OOS IDPA [employer] [facility] [place] IDPA BLUE ACCESS OOS WORKERS COMPENSATION GENERIC COMPENSATION Care Teams Welder Manufacture Relationship Specialty Start Date End Date Manolo Nick MD [address] [place] [address] PCP - General Internal Medicine 06/09/20 Shae Pop MD [address] [place] [address] Resident Neurology 05/25/23
--- OUTSIDE RECORDS SUMMARY | 2024-11-11 12:06 | XMS_ITS | Clinical Summary ---
Author Organization [facility] Address [address] [address] Care Team Providers Care President And Cmo Name Role Phone Unavailable Primary Care Provider Unavailabl e Source Comments [facility],non-owned Affiliates and Associated Physician Practices is amultiple site organization consisting of ambulatory clinics and hospital sitesin [place] and [place]. This disclosure is being madepursuant to the Care Everywhere program and may not contain all information available regarding this patient. Last updated 18.[facility] Recorrido Social History Tobacco Use Types Packs/Day Years [...] patient's age to complete this topic Insurance Advance Directives * Full Code (Latest Code Status on File) Date Activated Date Inactivated Comments 09/27/2019 6:14 PM 10/06/2019 11:01 AM
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
--- OUTSIDE RECORDS SUMMARY | 2024-11-11 12:06 | XMS_ITS | Clinical Summary ---
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 Gender Identity Not on file Sexual Orientation Not on file Obstetrics History Last Filed Vital Signs Vital Sign Reading Time Taken Comments Blood Pressure 141/84 05/15/2024 3:53 PM TEACHERS' ASSISTANT Pulse 74 05/15/2024 3:53 PM TEACHERS' ASSISTANT Temperature 36.6 C (97.8 F) 05/15/2024 3:53 PM TEACHERS' ASSISTANT Respiratory Rate 16 05/15/2024 3:53 PM TEACHERS' ASSISTANT Oxygen Saturation 100% 05/15/2024 3:53 PM TEACHERS' ASSISTANT Inhaled Oxygen Concentration - - Weight 74.1 kg (163 lb 6.4 oz) 05/15/2024 3:53 P M TEACHERS' ASSISTANT Height 172.7 cm (5' 8) 12/21/2023 11:37 [...] 11/06/2010 Influenza Vaccine (#1) 2024 Insurance IDPA [facility] [place] IDPA AETNA [facility] [place] IDPA [employer] ACCESS OOS WORKERS COMPENSATION GENERIC COMPENSATION Care Teams Button Cutting Machine Operator Relationship Specialty Start Date End Date Manolo Nick MD [address] [place] [address] PCP - General Internal Medicine 06/09/20 Shae Pop MD [address] [place] [address] Resident Neurology 05/25/23
[2024-11-11] MEDS: NEOMYCIN/POLYMYXIN/BACITRACIN OINTMENT PACKET 1 PACKET TOPICAL (12:47)
== END 2024-11-11 12:56 | disposition home or self-care (01) ==
PROVIDERS: Emergency Provider Emergency Medicine; PCP Family Medicine
DX: S61.431A Puncture wound without foreign body of right hand, initial encounter (principal); L03.113 Cellulitis of right upper limb; W45.8XXA Other foreign body or object entering through skin, initial encounter
CPT/HCPCS: 73130; 99283